=== PATIENT | male | born 1955 | race Caucasian/White ===

== ENCOUNTER → 2016-10-13 | Outpatient (CLI) | payer MEDICARE ==
[~2016-10-13] MED LIST: ALLOPURINOL300 MG PO; BISOPROLOL FUMAR5 MG PO; COMPAZINE10 MG PO; CRESTOR20 MG PO; FENTANYL IL; NEXIUM40 MG PO; NORCO 5-325 TA1 EACH PO; PERCOCET 10-321 EACH PO; PRILOSEC20 MG PO; SENEXON-S TABL1 EACH PO; ZOLPIDEM TARTRA10 MG PO; [UNRECOGNIZED DRUG - OTHER] IL
== END | disposition disaster alternative care site (69) ==
LOC: GRAD 13:41
DX: C83.01 Small cell B-cell lymphoma, lymph nodes of head, face, and neck (principal); D70.1 Agranulocytosis secondary to cancer chemotherapy; R05 Cough; I70.90 Unspecified atherosclerosis; K76.0 Fatty (change of) liver, not elsewhere classified; Z98.890 Other specified postprocedural states; Z92.21 Personal history of antineoplastic chemotherapy
CPT/HCPCS: Q9967

== ENCOUNTER → 2016-11-02 | Day surgery (SDC) | payer MEDICARE ==
[~2016-11-02] VITALS: Ht 170.2 cm; Wt 81.4 kg
--- NOTE | ~2016-11-02 | OR ---
PATIENT'S NAME: STACEY GALAVIZ [facility] AGE: 61 Y [address] ROOM: [place] [address] LOCATION: [facility] ADMIT DATE: 11/02/2016 OR/Procedure Report DISCHARGE DATE: FAMILY PHYSICIAN: Bobby Jaimes MD ATTENDING PHYSICIAN: RUTH ABBOTT SURGEON: Ruth Abbott MD STORE RECEIVING SPECIALIST: MIGUEL Connell. DATE OF PROCEDURE: 11/02/2016 PREOPERATIVE DIAGNOSIS: Left breast mass. POSTOPERATIVE DIAGNOSIS: Left breast mass. PROCEDURE: Left breast excisional biopsy. ANESTHESIA: TIVA. INDICATIONS: This is a 61-year-old male who presents with a symptomatic benign breast mass in the left side. Risks and benefits of excisional breast biopsy were discussed. Informed consent was obtained. DESCRIPTION OF PROCEDURE: The patient was placed in the supine position. Left breast was prepped and draped in the usual sterile fashion. A circumareolar incision was made in the subcutaneous tissue, divided with electrocautery. The breast mass was excised from surrounding tissue with electrocautery and submitted to pathology. The wound was irrigated and aspirated. Hemostasis was achieved. The skin was closed with dermal 4-0 PDS, followed by subcuticular or 4-0 Monocryl and sterile dressings were applied. The patient tolerated the procedure well and was taken to the recovery room in a stable condition. MD AILIN TRISTAN/modl /[id number] d: 11/02/16 1413 t: 11/09/16 1859, OPERATIVE SUMMARY
== END | disposition disaster alternative care site (69) ==
LOC: GPOC 10-31 10:00 → GSDC 10:00
PROC: 0HBU0ZX Excision of Left Breast, Open Approach, Diagnostic (ICD-10-PCS; principal; 2016-11-02)
DX: E65 Localized adiposity (principal); I25.10 Atherosclerotic heart disease of native coronary artery without angina pectoris; I10 Essential (primary) hypertension; N40.0 Benign prostatic hyperplasia without lower urinary tract symptoms; Z87.19 Personal history of other diseases of the digestive system; Z85.71 Personal history of Hodgkin lymphoma; Z88.5 Allergy status to narcotic agent; Z88.2 Allergy status to sulfonamides; Z88.8 Allergy status to other drugs, medicaments and biological substances
CPT/HCPCS: J0690; J1642; J1650; J2001; J7120